=== PATIENT | female | born 1960 | race Caucasian/White ===

== ENCOUNTER 2016-12-05 10:41 | Inpatient (IN) ==
--- NOTE | 2016-12-05 07:58 | Discharge Summary ---
<Jenny Mabry - Last Filed: 12/05/16 07:56> Date of Encounter: 12/05/16 - Discharge Diagnosis (1) Aseptic loosening of prosthetic knee Priority: Primary Status: Acute Qualifiers: Encounter type: initial encounter Qualified Code(s): T84.038A - Mechanical loosening of other internal prosthetic joint, initial encounter; Z96.659 - Presence of unspecified artificial knee joint - Discharge Medications Home Medications: Albuterol Sulfate [Albuterol Inhaler] 2 puff IH Q4HR PRN 05/05/15 [History] Fluticasone Propionate [Flovent Hfa] 1 puff IH BID 05/05/15 [History] Aspirin Enteric Coated [Aspirin EC] 325 mg PO DAILY #21 tablet.dr 12/05/16 [Rx] EPINEPHrine [Epipen] 0.3 mg IM ONCE PRN 12/05/16 [History] OxyCODONE Immed Rel [Roxicodone 5 MG] 5 - 10 mg PO Q6HR PRN #40 tablet 12/05/16 [Rx] Allergies/Adverse Reactions: Allergies azithromycin Allergy (Mild, Unverified 05/05/15 06:32) Rash acetaminophen [From Percocet] Allergy (Verified 05/14/16 15:51) Nausea hydrocodone Adverse Reaction (Intermediate, Unverified 05/05/15 06:32) Vomiting Oxycodone Adverse Reaction (Intermediate, Verified 05/05/15 06:32) headache, vomiting, itching tramadol Adverse Reaction (Intermediate, Verified 10/28/15 10:10) swelling, headache, vomiting peanut Adverse Reaction (Verified 12/05/16 12:10) Anaphylaxis FOOD ALLERGY TREE NUTS, PEANUTS, REBECCA Primary care physician: Dale Nuñez - Patient Status Disposition: Home, Self-Care Condition: Good - Discharge Instructions Follow Up With: Drew Montalvo MD [Partnered Physician] - 01/04/17 5:25 pm Jenny Mabry PAC [Physician Store Promoter] - 12/15/16 1:45 pm Dale Nuñez DO [Primary Care Provider] - - Hospital Course Hospital course: Ms. Gan is a 56 year old female - Time Spent with Patient Total time spent providing and/or coordinating discharge services: <Talisha Goncalves - Last Filed: 12/05/16 10:13> Date of Encounter: 12/05/16 - Discharge Diagnosis (1) Aseptic loosening of prosthetic knee Priority: Primary Status: Acute Qualifiers: Encounter type: initial encounter Qualified Code(s): T84.038A - Mechanical loosening of other internal prosthetic joint, initial encounter; Z96.659 - Presence of unspecified artificial knee joint (2) Asthma Priority: Secondary Status: Chronic Qualifiers: Asthma severity: unspecified severity Asthma complication type: uncomplicated Qualified Code(s): J45.909 - Unspecified asthma, uncomplicated Primary care physician: Dale Nuñez - Hospital Course Hospital course: Ms. Gan is a 56 year old female - Time Spent with Patient Total time spent providing and/or coordinating discharge services: <Drew Montalvo - Last Filed: 12/07/16 08:00> Date of Encounter: 12/07/16 Time of Encounter: 07:59 - Discharge Diagnosis (1) Asthma Priority: Secondary Status: Chronic Qualifiers: Asthma severity: unspecified severity Asthma complication type: uncomplicated Qualified Code(s): J45.909 - Unspecified asthma, uncomplicated (2) Aseptic loosening of prosthetic knee Priority: Primary Status: Acute Qualifiers: Encounter type: subsequent encounter Qualified Code(s): T84.038D - Mechanical loosening of other internal prosthetic joint, subsequent encounter; Z96.659 - Presence of unspecified artificial knee joint Primary care physician: Dlae Nuñez - Patient Status Functional capacity at discharge: uses cane/walker Overall status at discharge: patient is progressing back to baseline - Hospital Course Hospital course: Ms. Gan is a 56 year old female The patient had an uneventful postoperative course. They received antibiotics and physical therapy and were discharged in stable condition. There will follow -up in the office in 2 weeks. Aspirin DVT prophylaxis - Time Spent with Patient Total time spent providing and/or coordinating discharge services:
[2016-12-05] MEDS ORDERED: Tetracaine/PF 20 MG/2 ML AMPUL ONE (10:51)
[2016-12-05] MEDS ORDERED: ROPIVACAINE HCL/PF 0.5% 30 ML VIAL ONE (10:51)
[2016-12-05] MEDS ORDERED: CeFAZolin Pre 2,000 MG/100 ML 2,000 MG/100 ML BAG IVPB ONE (11:08)
[2016-12-05] MEDS ORDERED: Albuterol 2.5 MG/3 ML NEBULIZER IH ONE (11:08)
[2016-12-05] MEDS ORDERED: Ringers Solution, Lactated 1,000 ML IVC SCH (11:15)
--- NOTE | 2016-12-05 12:14 | History & Physical Report ---
Date of Encounter: 12/05/16 Time of Encounter: 12:14 24 Hour HP Update - Instructions Instructions: If the History and Physical is less than 30 days old and was completed prior to A.M. admission and or procedure and has NOT been updated on calendar day of procedure please complete this update prior to performing procedure. - Update Patient reports changes in Medical Condition: No Changes in examination, assessment, or condition: No Changes in Medication: No Preop tests/diagnostics Reviewed: Yes Surgery Remains Indicated: Yes Consent for Planned Operative Procedure(s) Verified: Yes - Pre-Operative Checklist Preoperative Checklist Indicated: No Prophylactic Antibiotic Ordered: Yes Is VTE Prophylaxis Indicated?: Yes
[2016-12-05] MEDS ORDERED: *HR* Propofol 200 MG/20 ML VIAL IVP ONE (12:25)
[2016-12-05] MEDS ORDERED: *HR* Midazolam HCl 2 MG/2 ML VIAL ONE (12:25)
[2016-12-05] MEDS ORDERED: *HR* FentaNYL (PF) 100 MCG/2 ML VIAL ONE (12:30)
[2016-12-05] MEDS ORDERED: *HR* Succinylcholine 200 MG/10 ML VIAL IVP ONE (12:31)
[2016-12-05] MEDS ORDERED: Lidocaine -MPF 2% 2 ML VIAL ONE (12:31)
--- NOTE | 2016-12-05 12:55 | Anesthesia Evaluation PreOp ---
Date of Encounter: 12/05/16 Time of Encounter: 12:53 - Past History Planned Operation: L TKA Cardiac History: Denies any Significant Hx Pulmonary History: Asthma DECK WORKER History: Denies Any Significant HX Other Medical History: GERD Anesthesia History: No Prior Anesthetic Complications, Past Anesthesia (t&a, c/ s x2, bilat tka) Alcohol Use: none Drug use: none Medications and Allergies Albuterol Sulfate [Albuterol Inhaler] 2 puff IH Q4HR PRN 05/05/15 [History] Fluticasone Propionate [Flovent Hfa] 1 puff IH BID 05/05/15 [History] Aspirin Enteric Coated [Aspirin EC] 325 mg PO DAILY #21 tablet. 12/05/16 [Rx] EPINEPHrine [Epipen] 0.3 mg IM ONCE PRN 12/05/16 [History] OxyCODONE Immed Rel [Roxicodone 5 MG] 5 - 10 mg PO Q6HR PRN #40 tablet 12/05/16 [Rx] Allergies azithromycin Allergy (Mild, Unverified 05/05/15 06:32) Rash acetaminophen [From Percocet] Allergy (Verified 05/14/16 15:51) Nausea hydrocodone Adverse Reaction (Intermediate, Unverified 05/05/15 06:32) Vomiting Oxycodone Adverse Reaction (Intermediate, Verified 05/05/15 06:32) headache, vomiting, itching tramadol Adverse Reaction (Intermediate, Verified 10/28/15 10:10) swelling, headache, vomiting peanut Adverse Reaction (Verified 12/05/16 12:10) Anaphylaxis FOOD ALLERGY TREE NUTS, PEANUTS, REBECCA - Meds/Allergy Pre-op Review Medications Reviewed: Yes Allergies Reviewed: Yes Beta Blockers on Current Med List: No Anesthesia Results - Labs Laboratory Tests 11/30/16 11/30/16 11/30/16 10:45 10:45 10:45 Hgb 12.9 Hct 39.6 Plt Count 289 PT 11.2 INR 1.0 APTT 32.3 Sodium 142 Potassium 3.7 Creatinine 0.81 Anesthesia Exam O2 Sat Height 1.57 m Height 1.57 m Height 1.57 m Weight 65.317 kg Weight 65.317 kg Weight 65.317 kg O2 Sat by Pulse Oximetry 97 O2 Sat by Pulse Oximetry 97 Vital Signs Temp Pulse Resp BP Pulse Ox 97.9 F 76 18 122/70 97 12/05/16 10:55 12/05/16 10:55 12/05/16 10:55 12/05/16 10:55 12/05/16 10:55 Height: 1.57 Weight: 65 NPO (# of Hours): >8 - HEENT Pupil (Motor): Pupils equal, EOMI Mallampati: II Teeth: Poor dentition Oral Opening: Greater than 3 - DECK WORKER LOC: Oriented DECK WORKER Motor: Normal RUE, Normal LUE, Normal RLE, Normal LLE, Normal Face DECK WORKER Sensory: Normal: RUE, LUE, RLE, LLE, Face - Cardiac Rhythm: Regular Murmur: None - Pulmonary Breath Sounds: bilateral Clear Respiratory Effort: Symmetrical Anesthesia Assess/Plan ASA Score: 2 Modified Mcbee Scale for Level of Consciousness: Cooperative, oriented, and tranquil Anesthetic Plan: General, Regional Monitoring Plan: Standard Monitors Recovery Plan: PACU
[2016-12-05] MEDS ORDERED: Scopolamine Patch 1.5 MG PATCH.TD72 TD ONE (13:01)
--- NOTE | 2016-12-05 13:43 | Anesthesia Procedures ---
Date of Encounter: 12/05/16 Time of Encounter: 13:40 Procedures: Anesthesia - Nerve Block Procedure Date: 12/05/16 Time: 13:40 Allergies/Adv Reactions: Allergies azithromycin Allergy (Mild, Unverified 05/05/15 06:32) Rash acetaminophen [From Percocet] Allergy (Verified 05/14/16 15:51) Nausea hydrocodone Adverse Reaction (Intermediate, Unverified 05/05/15 06:32) Vomiting Oxycodone Adverse Reaction (Intermediate, Verified 05/05/15 06:32) headache, vomiting, itching tramadol Adverse Reaction (Intermediate, Verified 10/28/15 10:10) swelling, headache, vomiting peanut Adverse Reaction (Verified 12/05/16 12:10) Anaphylaxis FOOD ALLERGY TREE NUTS, PEANUTS, REBECCA Pre-op Diagnosis: unstable left knee Surgical Procedure: left total knee revision Checklist: Correct Patient Identifier, Correct procedure, History checked Correct side: Left Blood Thinner: No Monitor Applied: EKG, BP, Pulse Oximetry Sedation: Versed (mg): 2 Sedation: Fentanyl (mcg): 100 Indication: Post Op Analgesia Pre-op Neuro Deficits: No Block Type: Femoral (0.5% ropivicaine 30cc, tetracaine ), Other (iPACK 0.25% bupivicaine with clonidine) Catheter placed: No Sterile Technique: Yes Ultrasound used: Yes Anatomy identified: Yes Visual spread of Local: Yes Neuro Stimulation: Yes Nerve Stimulator Range: 0.2 - 0.4 mA Blood on Needle Aspiration: No Smooth Injection of Local: Yes Pain with Injection of Local: No Prep: Chlorhexadine Needle: 22 x 50 mm Stimuplex Local: 0.25% Bupivicaine w/Clonidine 20 mcg/cc Volume (cc): 50 Number of Attempts: 1 Complications: None/effective block Comments: peripheral nerve block with ultrasound for postop pain relief per Dr Montalvo request.
[2016-12-05] MEDS ORDERED: Ondansetron 4 MG/2 ML VIAL ONE (14:04)
[2016-12-05] MEDS ORDERED: Dexamethasone 4 MG/ML VIAL ONE (14:04)
[2016-12-05] MEDS ORDERED: Ondansetron 4 MG/2 ML VIAL IVP ONE (14:11)
[2016-12-05] MEDS ORDERED: *HR* Promethazine 25 MG/ML VIAL IVP PRN (14:11)
[2016-12-05] MEDS ORDERED: *HR* Morphine 2 MG/ML SYRINGE IVP PRN (14:11)
--- NOTE | 2016-12-05 14:34 | Orthopedic Operative Note ---
Date of procedure: 12/05/16 Pre-op diagnosis: Aseptic loosening left total knee replacement Post-op diagnosis: same Procedure: Procedure: Left revision total knee Estimated blood loss: 200 mL Hardware: Biomet SS K 60 left femur 14 x 120 stem, 67 stem tibia, 12 x 80 stem. 16 constrained Linda, Exam Under anesthesia: Full extension and flexion to 90 degrees significant varus valgus instability Procedural Notes: Unstable total knee, aseptic loosening tibia. Operative procedure: The patient was brought to the operating room and placed on the operating room table. After general anesthesia was administered the operative knee was examined. Findings were noted in the exam under anesthesia. The operative extremity was prepped and draped in sterile surgical fashion. The patient received IV antibiotics prior to skin incision. A standard midline incision was made centered over the patella through the old incision. The incision was made through the skin and subcutaneous tissue. A medial parapatellar tendon approach was performed. Care was taken to preserve tissue along the medial aspect of the patella. And to protect the patella tendon. The deep MCL was released off the medial tibia. The infra patella fat pad was excised. Fluid was encountered this was normal joint fluid, Cultures were obtained and gram . The knee was brought into flexion the poly-was removed. The interface between the patient's femoral component and distal femur were disrupted with a osteotome and oscillating saw. Femoral component was removed removed without significant bone loss. Attention was then turned to the tibial component. The same technique was used to remove the tibial component by disrupting the interface between the patient's tibial component and the patients proximal tibia. The tibial component was loose, was removed without significant bone loss. The tibia was sized to a 67 it was reamed up to a 12 x 80. Trial had good fit and fixation. The femur was sized to a 60, was reamed up to a 14 x 120. The finishing guide was seated and the box cut was made. The trial had good fit and fixation. Both trial components were seated and the 16 constrained Linda was seated and secured. The knee had full flexion and full extension with no instability. The patella tracked centrally. The trial components were removed. The knee sat for 2 minutes with a Betadine saline solution. It was irrigated out with 2 L of pulse irrigation. The components were assembled on the back table, the tibia cemented first followed by the femur. The 16 constrained liner was seated and secure. The knee was brought to full extension while the cement hardened. After the cement hardened the knee was irrigated out again. The extensor mechanism was closed with a running #2 Fiberwire suture and a running #2 PDS suture. The deep tissue was irrigated and closed deep with #1 PDS suture superficially with 0 PDS suture. The skin was closed with skin sloan. The patient was placed in a sterile dressing and postoperative brace. They were extubated and transferred to recovery room in stable condition. Anesthesia: GETA Surgeon: Drew Montalvo Weather Algorithm Scientist: Jenny Mabry Condition: stable Disposition: PACU
[2016-12-05] MEDS: *HR* HYDROmorphone (PF) 1 MG/ML SYRINGE IVP PRN ×4 (15:15→23:11)
--- NOTE | 2016-12-05 15:41 | Anesthesia Evaluation Post Op ---
Date of Encounter: 12/05/16 Time of Encounter: 15:41 - Vital Signs Vital Signs: Vital Signs/O2 Sat/Glucose, Most Current Temp Pulse Resp BP Pulse Ox 12/05/16 15:15 62 14 125/83 95 12/05/16 15:05 97.8 F 69 14 125/81 95 12/05/16 13:45 66 16 127/87 98 12/05/16 13:27 64 18 130/79 96 - Lungs Lungs: Clear Ascult./Percussion - Airway Airway: Non-obstructed - Cardiovascular Regular Rate - Mental Status Mental Status: Alert & Oriented, Answers Appropriately - Pain Pain Scale: 3 - Nausea Vomiting Nausea Vomiting: Not Present - Hydration Hydration: Ice chips - Discharge PostOp Status: Transfer Patient to floor
[2016-12-05 15:50] LABS: Hematocrit 38.2 % (35.3-44.9); Hemoglobin 12.3 g/dL (11.5-15.4)
[2016-12-05] MEDS ORDERED: *HR* OxyCODONE Immed Rel 5 MG TABLET PO PRN ×2 (16:10)
[2016-12-05] MEDS ORDERED: MOM Conc 10 ML UD.LIQ PO PRN (16:10)
[2016-12-05] MEDS ORDERED: Sennosides 8.6 MG TABLET PO PRN (16:10)
[2016-12-05] MEDS ORDERED: *HR* EPINEPHrine 0.3 MG/0.3 ML (PEN) IM PRN (16:10)
[2016-12-05] MEDS ORDERED: Naloxone 0.4 MG/ML INJ IVP PRN (16:10)
[2016-12-05] MEDS: *HR* Enoxaparin 30 MG/0.3 ML SYRINGE SQ SCH (17:54)
[2016-12-05] MEDS ORDERED: *HR* Enoxaparin 30 MG/0.3 ML SYRINGE SQ SCH (18:00)
[2016-12-05] MEDS: Fluticasone Propionate Nasal 50 MCG/SPRAY BOTTLE NS SCH (20:46)
[2016-12-05] MEDS ORDERED: Temazepam 15 MG CAPSULE PO PRN (21:00)
[2016-12-05] MEDS: ceFAZolin 2,000 MG in D5% in Water 100 ML IVPB SCH (21:33)
[2016-12-06] MEDS: Ringers Solution, Lactated 1,000 ML IVC SCH ×3 (01:16→17:26)
[2016-12-06] MEDS: *HR* HYDROmorphone (PF) 1 MG/ML SYRINGE IVP PRN ×5 (04:13→22:44)
[2016-12-06] MEDS: Ondansetron 4 MG/2 ML VIAL IVP PRN ×2 (04:25→10:59)
[2016-12-06] MEDS: ceFAZolin 2,000 MG in D5% in Water 100 ML IVPB SCH (05:29)
[2016-12-06] MEDS: *HR* Enoxaparin 30 MG/0.3 ML SYRINGE SQ SCH ×2 (05:30→17:32)
[2016-12-06 05:45] LABS: Hematocrit 34.6 % (35.3-44.9); Hemoglobin 11.4 g/dL (11.5-15.4)
[2016-12-06 05:59] LABS: BUN/Creatinine Ratio 14 (6-26); Blood Urea Nitrogen 10 mg/dL (7-20); Calcium 8.6 mg/dL (8.6-10.8); Carbon Dioxide 22 mEq/L (19-29); Chloride 107 mEq/L (98-109); Glucose 117 mg/dL (70-99); Osmolality,Calculated 284 (280-300); Potassium 3.9 mEq/L (3.5-4.5); Sodium 137 mEq/L (136-145); eGFR For African Americans > 60 (> 60); eGFR For Non-African Americans > 60 (> 60)
[2016-12-06] MEDS ORDERED: *HR* Promethazine 25 MG/ML VIAL IVP ONE (06:30)
[2016-12-06] MEDS ORDERED: Promethazine 12.5 MG in 0.9 % Sodium Chloride 50 ML IVPB ONE (06:45)
--- NOTE | 2016-12-06 06:46 | Orthopedics Progress Note ---
Date of Encounter: 12/06/16 Time of Encounter: 06:45 - Assessment and Plan (1) Asthma Current Visit: No Status: Chronic Qualifiers: Asthma severity: unspecified severity Asthma complication type: uncomplicated Qualified Code(s): J45.909 - Unspecified asthma, uncomplicated (2) Aseptic loosening of prosthetic knee Current Visit: Yes Status: Acute Qualifiers: Encounter type: subsequent encounter Qualified Code(s): T84.038D - Mechanical loosening of other internal prosthetic joint, subsequent encounter; Z96.659 - Presence of unspecified artificial knee joint Subjective Interval history: Patient was seen this morning significant nausea. Addressed with medication. Afebrile vital signs stable. Operative extremity: Neurovascularly intact Dressing clean dry and intact Calves nontender Assessment and plan: Continue with postoperative care hematocrit 34 Objective Vital signs: Vital Signs Temp Pulse Resp BP Pulse Ox 12/06/16 04:26 98.2 F 62 17 115/67 96 12/05/16 23:13 98.3 F 67 15 113/72 96 12/05/16 19:11 98.8 F 67 17 118/75 96 12/05/16 19:05 98.2 F 69 18 110/77 96 12/05/16 18:04 97.8 F 68 17 108/61 12/05/16 17:00 97.8 F 65 17 110/72 96 12/05/16 16:35 97.7 F 60 18 126/76 95 12/05/16 16:00 97.5 F L 60 15 133/82 96 12/05/16 15:45 98.8 F 62 18 131/86 94 12/05/16 15:35 98.3 F 60 19 137/86 94 12/05/16 15:25 59 16 126/84 94 12/05/16 15:15 62 14 125/83 95 12/05/16 15:05 97.8 F 69 14 125/81 95 12/05/16 13:45 66 16 127/87 98 12/05/16 13:27 64 18 130/79 96 12/05/16 11:19 97.9 F 76 18 122/70 97 12/05/16 10:55 97.9 F 76 18 122/70 97 Intake and Output 12/05/16 12/05/16 12/06/16 15:59 23:59 07:59 Intake Total 100 / 100 270 / 270 150 / 150 Output Total 200 / 200 Balance -100 / -100 270 / 270 150 / 150 Intake: IV Fluids 100 / 100 100 / 100 Ancef 2,000 MG In 100 / 100 Dextrose 5% 100 ML @ 200 mls/hr IVPB Q8H JEM Rx#: [id number] Ancef Premix 2,000 MG/100 100 / 100 ML 2,000 mg In 100 ml @ 200 mls/hr IVPB PREOP ONE Rx#:[id number] Oral 170 / 170 150 / 150 Output: Estimated Blood Loss 200 / 200 Other: # Voids 1 1 Weight 65.317 kg - Labs CBC & BMP: 12/06/16 05:21 12/06/16 05:21 Labs: Abnormal lab results Hgb 11.4 g/dL (11.5-15.4) L 12/06/16 05:21 Hct 34.6 % (35.3-44.9) L 12/06/16 05:21 Glucose 117 mg/dL (70-99) H 12/06/16 05:21 - VTE Documentation of Mechanical Device: Venous foot pump, device Consult Discharge Plan - Plan Referrals: Dale Nuñez DO [Primary Care Provider] -
[2016-12-06] MEDS: Fluticasone Propionate Nasal 50 MCG/SPRAY BOTTLE NS SCH (09:30)
[2016-12-06] MEDS: Ibuprofen 800 MG TABLET PO PRN ×2 (10:54→21:43)
[2016-12-06] MEDS: FLOVENT INH PO SCH (19:46)
[2016-12-06] MEDS ORDERED: Beclomethasone 80mcg MDI IH SCH (22:00)
[2016-12-07] MEDS: *HR* HYDROmorphone (PF) 1 MG/ML SYRINGE IVP PRN ×3 (00:50→06:41)
[2016-12-07] MEDS: Ondansetron 4 MG/2 ML VIAL IVP PRN ×3 (00:50→08:09)
[2016-12-07] MEDS: *HR* Enoxaparin 30 MG/0.3 ML SYRINGE SQ SCH (04:09)
[2016-12-07 05:39] LABS: BUN/Creatinine Ratio 16 (6-26); Blood Urea Nitrogen 11 mg/dL (7-20); Calcium 8.6 mg/dL (8.6-10.8); Carbon Dioxide 28 mEq/L (19-29); Chloride 104 mEq/L (98-109); Glucose 112 mg/dL (70-99); Osmolality,Calculated 286 (280-300); Potassium 3.6 mEq/L (3.5-4.5); Sodium 138 mEq/L (136-145); eGFR For African Americans > 60 (> 60); eGFR For Non-African Americans > 60 (> 60)
[2016-12-07 06:11] VITALS: BP 109/72
[2016-12-07] MEDS: Ringers Solution, Lactated 1,000 ML IVC SCH (06:48)
--- NOTE | 2016-12-07 08:01 | Orthopedics Progress Note ---
Date of Encounter: 12/07/16 Time of Encounter: 08:00 - Assessment and Plan (1) Asthma Current Visit: No Status: Chronic Qualifiers: Asthma severity: unspecified severity Asthma complication type: uncomplicated Qualified Code(s): J45.909 - Unspecified asthma, uncomplicated (2) Aseptic loosening of prosthetic knee Current Visit: Yes Status: Acute Qualifiers: Encounter type: subsequent encounter Qualified Code(s): T84.038D - Mechanical loosening of other internal prosthetic joint, subsequent encounter; Z96.659 - Presence of unspecified artificial knee joint Subjective Interval history: Patient was seen this morning significant nausea. Addressed with medication. Afebrile vital signs stable. Operative extremity: Neurovascularly intact Dressing clean dry and intact Calves nontender Assessment and plan: Continue with postoperative care hematocrit 30 discharged today Objective Vital signs: Vital Signs Temp Pulse Resp BP Pulse Ox 12/07/16 06:43 93 12/07/16 06:10 98.5 F 78 14 109/72 93 12/07/16 04:00 98.4 F 87 14 122/81 94 12/07/16 00:40 98.5 F 84 14 114/69 94 12/06/16 22:41 98.3 F 80 14 120/77 95 12/06/16 19:50 79 119/72 12/06/16 17:35 81 106/73 12/06/16 14:50 98.6 F 71 18 107/60 94 12/06/16 12:43 83 16 105/66 12/06/16 11:32 99.2 F 70 14 110/67 95 12/06/16 10:52 63 109/70 12/06/16 09:19 76 85/56 12/06/16 08:57 83 14 119/79 97 Intake and Output 12/06/16 12/07/16 12/07/16 23:59 07:59 15:59 Intake Total 1100 / 1100 1100 / 1100 Output Total 200 / 200 300 / 300 Balance 900 / 900 800 / 800 Intake: IV Fluids 1000 / 1000 1000 / 1000 Lactated Ringers 1,000 ML 1000 / 1000 1000 / 1000 @ 75 mls/hr IVC .[id number] JEM Rx#:[id number] Oral 100 / 100 100 / 100 Output: Urine 200 / 200 300 / 300 Other: # Voids 1 - Labs CBC & BMP: 12/07/16 04:17 12/07/16 04:17 Labs: Abnormal lab results Hgb 10.0 g/dL (11.5-15.4) L 12/07/16 04:17 Hct 30.0 % (35.3-44.9) L 12/07/16 04:17 Glucose 112 mg/dL (70-99) H 12/07/16 04:17 - VTE Documentation of Mechanical Device: Venous foot pump, device Consult Discharge Plan - Plan Referrals: Drew Montalvo MD [Partnered Physician] - 01/04/17 5:25 pm Jenny Mabry PAC [Physician Pitch Flaker] - 12/15/16 1:45 pm Dale Nuñez DO [Primary Care Provider] -
[2016-12-07] MEDS: Ibuprofen 800 MG TABLET PO PRN (08:22)
[2016-12-07] MEDS: FLOVENT INH PO SCH (09:29)
[2016-12-07] MEDS ORDERED: *HR* HYDROmorphone 2 MG TABLET PO PRN ×2 (10:56→11:09)
== END 2016-12-07 12:50 | disposition home or self-care (01) | DRG 468 ==
LOC: SAMDAY 10:41 → 3NENU 16:47
PROVIDERS: ADMIT Orthopaedic Surgery; ATTEND Orthopaedic Surgery

== ENCOUNTER 2020-05-11 10:19 | Inpatient (IN) ==
[2020-05-11] MEDS ORDERED: *HR* Midazolam HCl 2 MG/2 ML VIAL ONE (10:27)
[2020-05-11] MEDS ORDERED: *HR* FentaNYL (PF) 100 MCG/2 ML VIAL ONE (10:27)
[2020-05-11] MEDS ORDERED: *HR* Succinylcholine 200 MG/10 ML VIAL IVP ONE (10:28)
[2020-05-11] MEDS ORDERED: Ondansetron 4 MG/2 ML VIAL ONE (10:28)
[2020-05-11] MEDS ORDERED: Lidocaine HCL 4 ML Topical Solution (Laryng-O-Jet Kit Sterile Pak) TP ONE (10:28)
[2020-05-11] MEDS ORDERED: Lidocaine -MPF 2% 2 ML VIAL ONE (10:28)
[2020-05-11] MEDS ORDERED: *HR* Propofol 200 MG/20 ML VIAL IVP ONE (10:28)
[2020-05-11] MEDS ORDERED: Vancomycin 1,000 MG VIAL ONE (10:31)
[2020-05-11] MEDS ORDERED: Ethanol\\Acetic Acid\\Na Ace\\Ben 1,000 ML IRRIG.SOLN IR ONE (10:31)
[2020-05-11] MEDS ORDERED: Ropivacaine/PF 0.5% 30 ML VIAL ONE (10:40)
[2020-05-11] MEDS ORDERED: ROPIVACAINE/PF/NS 0.25% 1 EACH SYRINGE INTRAART ONE (10:40)
[2020-05-11] MEDS ORDERED: CeFAZolin Syr 2,000MG/20 ML 2,000 MG/20 ML SYRINGE IVPB ONE (10:44)
[2020-05-11] MEDS ORDERED: Ringers Solution, Lactated 1,000 ML IVC SCH ×2 (10:45→14:51)
[2020-05-11] MEDS ORDERED: *HR* OxyCODONE Immed Rel 5 MG TABLET PO PRN (10:46)
[2020-05-11] MEDS ORDERED: Ondansetron 4 MG/2 ML VIAL IVP PRN ×2 (10:46→14:51)
[2020-05-11] MEDS ORDERED: *HR* HYDROmorphone PF 0.5 MG/0.5 ML SYRINGE IVP PRN (10:46)
[2020-05-11] MEDS ORDERED: *HR* Promethazine 25 MG/ML VIAL IVP PRN (10:46)
[2020-05-11] MEDS ORDERED: Scopolamine Patch 1.5 MG PATCH.TD72 TD ONE (11:03)
[2020-05-11] MEDS ORDERED: *HR* PHENYLEPHRINE 1,000 MCG/10 ML SYRINGE IVP ONE (12:14)
[2020-05-11] MEDS ORDERED: Povidone-Iodine 45 ML, Sodium Chloride IRRigation 1,000 ML IR ONE (13:05)
[2020-05-11 13:43] LABS: Hematocrit 37.4 % (35.3-44.9)
[2020-05-11 13:45] LABS: Hemoglobin 11.6 g/dL (11.5-15.4)
[2020-05-11] MEDS ORDERED: Sennosides 8.6 MG TABLET PO PRN (14:51)
[2020-05-11] MEDS ORDERED: Acetaminophen 325 MG TABLET PO PRN (14:51)
[2020-05-11] MEDS ORDERED: Ketorolac 30 MG/ML VIAL IVP PRN (14:51)
[2020-05-11] MEDS ORDERED: Dextrose Gel 15 GM/37.5 ML TUBE PO PRN ×2 (14:51)
[2020-05-11] MEDS ORDERED: D5% in Water 1,000 ML IVC PRN (14:51)
[2020-05-11] MEDS ORDERED: *HR* Dextrose 50 % in Water (Vial) 50 ML VIAL IVP PRN (14:51)
[2020-05-11] MEDS ORDERED: MOM Conc 10 ML UD.LIQ PO PRN (14:51)
[2020-05-11] MEDS ORDERED: Naloxone 0.4 MG/ML INJ IVP PRN (14:51)
[2020-05-11] MEDS ORDERED: *HR* HYDROmorphone (PF) 1 MG/ML SYRINGE IVP PRN (14:51)
[2020-05-11 15:56] VITALS: BP 104/72
[2020-05-11] MEDS ORDERED: CeFAZolin 2 GM/120 ML BAG IVPB SCH (16:00)
[2020-05-11] MEDS ORDERED: Insulin LISPRO 300 UNITS/3 ML VIAL SQ SCH ×2 (16:30→21:00)
[2020-05-11] MEDS ORDERED: *HR* Enoxaparin 30 MG/0.3 ML SYRINGE SQ ONE (18:00)
[2020-05-12] MEDS ORDERED: Aspirin Enteric Coated 81 MG Tablet PO SCH ×2 (09:00)
== END 2020-05-11 16:50 | disposition home or self-care (01) | DRG 483 ==
LOC: SAMDAY 10:19 → 3NENU 13:51
PROVIDERS: ADMIT Orthopaedic Surgery; ATTEND Orthopaedic Surgery